=== PATIENT | female | born 1950 | race African-American/Black ===

== ENCOUNTER → 2016-11-04 | Outpatient (CLI) | payer OTHER ==
[~2016-11-04] MED LIST: AMARYL2 MG PO; AMARYL4 MG PO; ASPIRIN EC81 M1 PO; AVAPRO300 MG PO; ENOXAPARIN40 MG/0.1 INJECTION; GLUCOPHAGE500 MG PO; HYDROCHLOROTHIA50 MG PO; HYDROCODON-ACE1 EAC7 PO; K-DUR 20 MEQ T20 MEQ PO; KLOR-CON 10 ER10 MEQ PO; TOPROL XL100 MG PO; VERAPAMIL E.R240 M1 PO; VITAMIN D1000 UNI2 PO
[2016-11-04 12:59] LABS: CREATININE 1.1 mg/dL (0.6-1.3)
== END ==
LOC: CAT 11:59
PROVIDERS: Obstetrics & Gynecology Gynecologic Oncology
DX: C54.1 Malignant neoplasm of endometrium (principal); Z17.1 Estrogen receptor negative status [ER-]; C50.512 Malignant neoplasm of lower-outer quadrant of left female breast; C55 Malignant neoplasm of uterus, part unspecified